=== PATIENT | female | born 1950 | race Caucasian/White ===

== ENCOUNTER → 2016-05-18 | Outpatient (CLI) | payer OTHER | LOC: MAMO 08:28 | DX: Z12.31 Encounter for screening mammogram for malignant neoplasm of breast (principal); M79.673 Pain in unspecified foot; M25.559 Pain in unspecified hip | CPT/HCPCS: 73502; 73630; G0202 ==

== ENCOUNTER → 2021-10-28 | Outpatient (CLI) | payer MEDICARE, OTHER ==
[~2021-10-28] MED LIST: ACETAMINOPHEN500 MG PO; BENADRYL25 MG PO; BMP Blood Test; CLOPIDOGREL75 MG PO; CRESTOR5 MG PO; CYANOCOBAL1000 MCG/1 INJ; GABAPENTIN100 MG PO; HYDROCHLOROTHIA25 MG PO; HYDROXYZINE PAM25 MG PO; K-DUR TAB 10 M10 MEQ PO; LEVOTHYROXINE25 MCG PO; METOPROLOL TART50 MG PO; NITROSTAT 0.40.4 MG SL; SLEEP AID25 M1 PO
== END ==
LOC: KOH-I 10-27 10:00
DX: M75.101 Unspecified rotator cuff tear or rupture of right shoulder, not specified as traumatic (principal)
CPT/HCPCS: 36415; 71046; 73200; 80048; 85027; 93005

== ENCOUNTER 2021-11-07 20:39 | Emergency (ER) | payer MEDICARE, OTHER ==
[2021-11-08 05:20] LABS: HEMOGLOBIN 16.1 gm/dl (12.3-15.3); RED BLOOD COUNT 5.28 M/UL (4.00-5.10); WHITE BLOOD COUNT 7.4 K/UL (4.5-11.0)
[2021-11-08 05:39] LABS: BUN/CREATININE RATIO 13 (0-10)
[2021-11-08] MEDS ORDERED: PERCOCET 5/325 T1 EA PO (06:06)
[2021-11-08] MEDS ORDERED: K-TAB ER10 MEQ PO (06:14)
== END 2021-11-08 06:25 | disposition home or self-care (01) ==
LOC: ER1 20:39
PROVIDERS: Family Medicine
DX: K46.9 Unspecified abdominal hernia without obstruction or gangrene (principal); Z90.710 Acquired absence of both cervix and uterus; Z90.89 Acquired absence of other organs
CPT/HCPCS: 80053; 81001; 83690; 85025; 96374; 99284; J1885; Q9967